=== PATIENT | male | born 1985 | race Caucasian/White ===

== ENCOUNTER → 2020-12-11 | Outpatient (CLI) | payer OTHER | LOC: KOH-I 11:49 | DX: R05 Cough (principal); M54.2 Cervicalgia; M54.6 Pain in thoracic spine; M54.5 Low back pain; M79.642 Pain in left hand; M79.641 Pain in right hand; M25.532 Pain in left wrist; M25.531 Pain in right wrist; M19.041 Primary osteoarthritis, right hand; M19.042 Primary osteoarthritis, left hand; M25.742 Osteophyte, left hand; M47.814 Spondylosis without myelopathy or radiculopathy, thoracic region; M47.816 Spondylosis without myelopathy or radiculopathy, lumbar region; M47.817 Spondylosis without myelopathy or radiculopathy, lumbosacral region | CPT/HCPCS: 71046; 72040; 72070; 72100; 73110; 73130 ==

== ENCOUNTER 2021-12-10 15:19 | Emergency (ER) | payer OTHER ==
[2021-12-10] MEDS ORDERED: CEPHALEXIN500 MG PO (15:54)
[2021-12-10] MEDS ORDERED: BACTRIM DS TAB1 EACH PO (15:54)
== END 2021-12-10 16:35 | disposition home or self-care (01) ==
LOC: ER1 15:19
DX: S60.453A Superficial foreign body of left middle finger, initial encounter (principal); L03.012 Cellulitis of left finger; F17.290 Nicotine dependence, other tobacco product, uncomplicated; W45.8XXA Other foreign body or object entering through skin, initial encounter
CPT/HCPCS: 99283

== ENCOUNTER → 2021-12-10 | Outpatient (CLI) | payer OTHER ==
[~2021-12-10] MED LIST: BACTRIM DS TAB1 EACH PO; CEPHALEXIN500 MG PO
[2021-12-10 14:50] LABS: HEMOGLOBIN 12.9 gm/dl (14.0-17.5); RED BLOOD COUNT 4.49 M/UL (4.20-5.50); WHITE BLOOD COUNT 8.7 K/UL (4.5-11.0)
[2021-12-10 15:38] LABS: BUN/CREATININE RATIO 15 (0-10)
[2021-12-11 08:14] LABS: CHOLESTEROL, TOTAL 159 mg/dL (100-199); HDL CHOLESTEROL 55 mg/dL (>39); LDL CHOLESTEROL CALC 94 mg/dL (0-99); LDL/HDL RATIO 1.7 ratio (0.0-3.6); T. CHOL/HDL RATIO 2.9 ratio (0.0-5.0); TRIGLYCERIDES 48 mg/dL (0-149)
[2021-12-11 09:14] LABS: HBSAG SCREEN Negative (Negative); HCV AB <0.1 (0.0-0.9); HEP A AB, IGM Negative (Negative); HEP B CORE AB, IGM Negative (Negative)
[2021-12-11 10:14] LABS: ANTISTREPTOLYSIN O AB 60.2 IU/mL (0.0-200.0); RHEUMATOID ARTHRITIS FACTOR <10.0 IU/mL (<14.0)
== END ==
LOC: LAB 14:18
PROVIDERS: Nurse Practitioner Family
DX: M54.2 Cervicalgia (principal); M54.6 Pain in thoracic spine; M54.50 Low back pain, unspecified; R05.9 Cough, unspecified; M19.90 Unspecified osteoarthritis, unspecified site; R53.83 Other fatigue; E78.5 Hyperlipidemia, unspecified; I10 Essential (primary) hypertension; M25.50 Pain in unspecified joint; Z00.00 Encounter for general adult medical examination without abnormal findings; Z79.899 Other long term (current) drug therapy; M47.814 Spondylosis without myelopathy or radiculopathy, thoracic region; M47.816 Spondylosis without myelopathy or radiculopathy, lumbar region
CPT/HCPCS: 36415; 71046; 72050; 72072; 72110; 80053; 80061; 80074; 82150; 83690; 84443; 84550; 85027; 85652; 86038; 86060; 86140; 86431